=== PATIENT | female | born 1935 | race Hispanic/Latino ===

== ENCOUNTER → 2018-02-01 | Outpatient (CLI) | payer OTHER, MEDICARE | LOC: OIH 11:09 | PROVIDERS: ATTEND Family Medicine | DX: S20.212A Contusion of left front wall of thorax, initial encounter (principal); X58.XXXA Exposure to other specified factors, initial encounter; Y93.89 Activity, other specified; Y92.89 Other specified places as the place of occurrence of the external cause; Y99.8 Other external cause status | CPT/HCPCS: 71100 ==

== ENCOUNTER 2018-04-12 09:18 | Emergency (ER) | payer OTHER, MEDICARE ==
[2018-04-12 09:42] LABS: APPEARANCE,URINE Cloudy (CLEAR); BILIRUBIN,URINE Negative (NEGATIVE); COLOR,URINE Yellow (YELLOW); GLUCOSE, URINE (UA) Negative (NEGATIVE); KETONES,URINE Negative (NEGATIVE); LEUKOCYTE ESTERASE ,URINE Trace (NEGATIVE); NITRATE,URINE Positive (NEGATIVE); OCCULT BLOOD,URINE Negative (NEGATIVE); PH,URINE 5.5 (5.0-8.0); PROTEIN,URINE Negative (NEGATIVE)
[2018-04-12 09:55] LABS: EOSINOPHILS % (AUTO) 2.8 % (0.0-8.0); HEMATOCRIT 33.7 % (36-48); LYMPHOCYTES % (AUTO) 23.7 % (21.0-51.0); MEAN CORPUSCULAR HEMOGLOBIN 29.6 pg (27.0-33.0); MEAN CORPUSCULAR HGB CONC 33.6 g/dL (32.0-36.0); MEAN CORPUSCULAR VOLUME 88.1 fL (79-99); MONOCYTES % (AUTO) 5.4 % (3.0-13.0); NEUTROPHILS % (AUTO) 67.1 % (40.0-77.0); PLATELET COUNT (AUTO) 280 K/uL (130-400); RED BLOOD CELL COUNT(AUTO) 3.83 MIL/uL (4.00-5.50); RED CELL DISTRIBUTION WIDTH 13.5 % (11.0-15.5); WHITE BLOOD COUNT (AUTO) 6.5 K/uL (4.8-10.8)
[2018-04-12 10:09] LABS: CREATININE 0.7 mg/dL (0.5-1.5); POTASSIUM 4.5 mmol/L (3.5-5.1)
[2018-04-12 10:11] LABS: BACTERIA,URINE Many /HPF (None Seen); RBC,URINE 0-1 /HPF (0-1)
[2018-04-12 10:12] LABS: SQUAMOUS EPITHELIAL CELL,UR Rare /HPF (0-2)
[2018-04-12] MEDS ORDERED: HYDROCODONE/ACETAMINOPHEN 5/325 MG TAB ONE (10:26)
== END 2018-04-12 10:53 | disposition home or self-care (01) ==
LOC: EDH 09:18
DX: N39.0 Urinary tract infection, site not specified (principal); R30.0 Dysuria; I10 Essential (primary) hypertension; Z88.0 Allergy status to penicillin; Z90.710 Acquired absence of both cervix and uterus; Z98.890 Other specified postprocedural states
CPT/HCPCS: 36415; 80048; 81001; 85025; 87088; 87186

== ENCOUNTER 2018-04-20 00:03 | Emergency (ER) | payer OTHER, MEDICARE ==
[2018-04-20 00:36] LABS: APPEARANCE,URINE Clear (CLEAR); BILIRUBIN,URINE Negative (NEGATIVE); COLOR,URINE Yellow (YELLOW); GLUCOSE, URINE (UA) Negative (NEGATIVE); KETONES,URINE Negative (NEGATIVE); LEUKOCYTE ESTERASE ,URINE Negative (NEGATIVE); NITRATE,URINE Negative (NEGATIVE); OCCULT BLOOD,URINE Negative (NEGATIVE); PH,URINE 6.5 (5.0-8.0); PROTEIN,URINE Negative (NEGATIVE); UROBILINOGEN,URINE 0.2 mg/dL (0.2-1.0)
[2018-04-20 02:06] LABS: BASOPHILS % (AUTO) 0.6 % (0.0-5.0); EOSINOPHILS % (AUTO) 3.6 % (0.0-8.0); HEMATOCRIT 34.5 % (36-48); LYMPHOCYTES % (AUTO) 28.4 % (21.0-51.0); MEAN CORPUSCULAR HEMOGLOBIN 30.3 pg (27.0-33.0); MEAN CORPUSCULAR HGB CONC 34.3 g/dL (32.0-36.0); MEAN CORPUSCULAR VOLUME 88.4 fL (79-99); MONOCYTES % (AUTO) 5.7 % (3.0-13.0); NEUTROPHILS % (AUTO) 61.7 % (40.0-77.0); NUCLEATED RED BLOOD CELLS 0.1 % (0.0-0.19); PLATELET COUNT (AUTO) 256 K/uL (130-400); WHITE BLOOD COUNT (AUTO) 7.3 K/uL (4.8-10.8)
[2018-04-20 02:14] LABS: CREATININE 0.7 mg/dL (0.5-1.5); POTASSIUM 3.9 mmol/L (3.5-5.1)
[2018-04-20 02:29] LABS: ALBUMIN 3.8 g/dL (3.5-5.0); BILIRUBIN,TOTAL 0.2 mg/dL (0.2-1.0); TOTAL PROTEIN, SERUM 7.3 g/dL (6.0-8.3)
== END 2018-04-20 06:11 | disposition home or self-care (01) ==
LOC: EDH 00:03
DX: N76.0 Acute vaginitis (principal); R10.2 Pelvic and perineal pain; I10 Essential (primary) hypertension; Z88.0 Allergy status to penicillin
CPT/HCPCS: 36415; 74176; 80053; 81003; 85025

== ENCOUNTER 2018-09-10 08:11 | Emergency (ER) | payer OTHER, MEDICARE ==
[2018-09-10] MEDS ORDERED: MECLIZINE HCL 25 MG TABLET ONE (08:50)
[2018-09-10] MEDS ORDERED: SODIUM CHLORIDE 0.9% 500ML 500 ML IV ONE (08:50)
[2018-09-10 09:09] LABS: BASOPHILS % (AUTO) 0.5 % (0.0-5.0); EOSINOPHILS % (AUTO) 0.6 % (0.0-8.0); HEMATOCRIT 35.2 % (36-48); LYMPHOCYTES % (AUTO) 21.4 % (21.0-51.0); MEAN CORPUSCULAR HEMOGLOBIN 29.4 pg (27.0-33.0); MEAN CORPUSCULAR HGB CONC 33.2 g/dL (32.0-36.0); MEAN CORPUSCULAR VOLUME 88.6 fL (79-99); MONOCYTES % (AUTO) 4.3 % (3.0-13.0); NEUTROPHILS % (AUTO) 73.2 % (40.0-77.0); PLATELET COUNT (AUTO) 261 K/uL (130-400); RED BLOOD CELL COUNT(AUTO) 3.97 MIL/uL (4.00-5.50); RED CELL DISTRIBUTION WIDTH 13.3 % (11.0-15.5); WHITE BLOOD COUNT (AUTO) 5.9 K/uL (4.8-10.8)
[2018-09-10 09:15] LABS: CREATININE 0.8 mg/dL (0.5-1.5)
== END 2018-09-10 10:46 | disposition home or self-care (01) ==
LOC: EDH 08:11
DX: R55 Syncope and collapse (principal); E86.9 Volume depletion, unspecified; R00.1 Bradycardia, unspecified; I10 Essential (primary) hypertension; Z88.0 Allergy status to penicillin
CPT/HCPCS: 36415; 70450; 80048; 84484; 85025; 93005; 96360; 99285; J7040

== ENCOUNTER 2018-09-26 14:28 | Emergency (ER) | payer OTHER, MEDICARE ==
[2018-09-26 16:10] LABS: BASOPHILS % (AUTO) 0.5 % (0.0-5.0); EOSINOPHILS % (AUTO) 0.6 % (0.0-8.0); HEMATOCRIT 32.1 % (36-48); LYMPHOCYTES % (AUTO) 31.2 % (21.0-51.0); MEAN CORPUSCULAR HEMOGLOBIN 29.3 pg (27.0-33.0); MEAN CORPUSCULAR HGB CONC 33.1 g/dL (32.0-36.0); MEAN CORPUSCULAR VOLUME 88.7 fL (79-99); MONOCYTES % (AUTO) 5.6 % (3.0-13.0); NEUTROPHILS % (AUTO) 62.1 % (40.0-77.0); PLATELET COUNT (AUTO) 257 K/uL (130-400); RED BLOOD CELL COUNT(AUTO) 3.62 MIL/uL (4.00-5.50); RED CELL DISTRIBUTION WIDTH 13.3 % (11.0-15.5)
[2018-09-26 17:28] LABS: POTASSIUM 4.3 mmol/L (3.5-5.1)
[2018-09-26 17:29] LABS: ALBUMIN 3.5 g/dL (3.5-5.0); BILIRUBIN,TOTAL 0.2 mg/dL (0.2-1.0); CREATININE 0.8 mg/dL (0.5-1.5); TOTAL PROTEIN, SERUM 6.8 g/dL (6.0-8.3)
== END 2018-09-26 17:56 | disposition home or self-care (01) ==
LOC: EDH 14:28
DX: R20.2 Paresthesia of skin (principal); R51 Headache; R42 Dizziness and giddiness; I10 Essential (primary) hypertension; Z90.710 Acquired absence of both cervix and uterus; Z98.890 Other specified postprocedural states; Z88.0 Allergy status to penicillin
CPT/HCPCS: 36415; 80053; 85025

== ENCOUNTER 2018-12-03 05:44 | Emergency (ER) | payer OTHER, MEDICARE ==
[2018-12-03 06:20] LABS: BASOPHILS % (AUTO) 0.4 % (0.0-5.0); EOSINOPHILS % (AUTO) 0.5 % (0.0-8.0); HEMATOCRIT 34.5 % (36-48); LYMPHOCYTES % (AUTO) 24.1 % (21.0-51.0); MEAN CORPUSCULAR HEMOGLOBIN 29.1 pg (27.0-33.0); MEAN CORPUSCULAR HGB CONC 32.8 g/dL (32.0-36.0); MONOCYTES % (AUTO) 4.9 % (3.0-13.0); NEUTROPHILS % (AUTO) 70.1 % (40.0-77.0); NUCLEATED RED BLOOD CELLS 0.1 % (0.0-0.19); PLATELET COUNT (AUTO) 267 K/uL (130-400); RED BLOOD CELL COUNT(AUTO) 3.88 MIL/uL (4.00-5.50); RED CELL DISTRIBUTION WIDTH 13.4 % (11.0-15.5); WHITE BLOOD COUNT (AUTO) 5.3 K/uL (4.8-10.8)
[2018-12-03 06:26] LABS: CREATININE 0.8 mg/dL (0.5-1.5)
[2018-12-03 06:33] LABS: INR 0.93 (0.85-1.15); PARTIAL THROMBOPLASTIN TIME 25.7 SEC (26.3-35.5); PROTHROMBIN TIME 9.8 SEC (9.6-11.6)
[2018-12-03 06:35] LABS: ALBUMIN 3.8 g/dL (3.5-5.0); BILIRUBIN,TOTAL 0.2 mg/dL (0.2-1.0); TOTAL PROTEIN, SERUM 7.5 g/dL (6.0-8.3)
[2018-12-03] MEDS ORDERED: ACETAMINOPHEN EXTRA STRENGTH 500 MG TABLET ONE (06:44)
[2018-12-03 07:13] LABS: APPEARANCE,URINE Clear (CLEAR); BILIRUBIN,URINE Negative (NEGATIVE); COLOR,URINE Yellow (YELLOW); GLUCOSE, URINE (UA) Negative (NEGATIVE); KETONES,URINE Negative (NEGATIVE); LEUKOCYTE ESTERASE ,URINE Negative (NEGATIVE); NITRATE,URINE Negative (NEGATIVE); OCCULT BLOOD,URINE Negative (NEGATIVE); PROTEIN,URINE Negative (NEGATIVE); UROBILINOGEN,URINE 0.2 mg/dL (0.2-1.0)
== END 2018-12-03 07:59 | disposition home or self-care (01) ==
LOC: EDH 05:44
DX: M54.6 Pain in thoracic spine (principal); R20.2 Paresthesia of skin; R51 Headache; I10 Essential (primary) hypertension; R79.1 Abnormal coagulation profile; Z88.0 Allergy status to penicillin; Z90.710 Acquired absence of both cervix and uterus
CPT/HCPCS: 36415; 71045; 80053; 81003; 84484; 85025; 85610; 85730; 93005

== ENCOUNTER 2019-02-17 12:47 | Emergency (ER) | payer OTHER, MEDICARE ==
[2019-02-17] MEDS ORDERED: MECLIZINE HCL 25 MG TABLET ONE (13:21)
[2019-02-17 13:38] LABS: APPEARANCE,URINE Clear (CLEAR); BILIRUBIN,URINE Negative (NEGATIVE); COLOR,URINE Yellow (YELLOW); GLUCOSE, URINE (UA) Negative (NEGATIVE); KETONES,URINE Negative (NEGATIVE); LEUKOCYTE ESTERASE ,URINE Negative (NEGATIVE); NITRATE,URINE Negative (NEGATIVE); OCCULT BLOOD,URINE Negative (NEGATIVE); PROTEIN,URINE Negative (NEGATIVE)
== END 2019-02-17 16:31 | disposition home or self-care (01) ==
LOC: EDH 12:47
DX: R42 Dizziness and giddiness (principal); R53.1 Weakness; I10 Essential (primary) hypertension; Z88.0 Allergy status to penicillin; Z90.710 Acquired absence of both cervix and uterus; Z98.890 Other specified postprocedural states
CPT/HCPCS: 70450; 81003; 93005

== ENCOUNTER 2019-02-28 08:30 | Emergency (ER) | payer OTHER, MEDICARE ==
[2019-02-28] MEDS ORDERED: ACETAMINOPHEN 325 MG TAB ONE (09:00)
[2019-02-28 09:11] LABS: CREATININE 0.7 mg/dL (0.5-1.5); POTASSIUM 4.1 mmol/L (3.5-5.1)
[2019-02-28 09:12] LABS: BASOPHILS % (AUTO) 0.3 % (0.0-5.0); EOSINOPHILS % (AUTO) 0.3 % (0.0-8.0); HEMATOCRIT 33.5 % (36-48); LYMPHOCYTES % (AUTO) 23.3 % (21.0-51.0); MEAN CORPUSCULAR HEMOGLOBIN 29.8 pg (27.0-33.0); MEAN CORPUSCULAR HGB CONC 33.9 g/dL (32.0-36.0); MONOCYTES % (AUTO) 4.9 % (3.0-13.0); NEUTROPHILS % (AUTO) 71.2 % (40.0-77.0); PLATELET COUNT (AUTO) 265 K/uL (130-400); RED CELL DISTRIBUTION WIDTH 13.9 % (11.0-15.5); WHITE BLOOD COUNT (AUTO) 4.6 K/uL (4.8-10.8)
[2019-02-28 09:15] LABS: ALBUMIN 3.6 g/dL (3.5-5.0); BILIRUBIN,TOTAL 0.4 mg/dL (0.2-1.0)
== END 2019-02-28 09:18 | disposition home or self-care (01) ==
LOC: EDH 08:30
DX: I10 Essential (primary) hypertension (principal); Z88.0 Allergy status to penicillin
CPT/HCPCS: 36415; 80053; 84484; 85025; 93005

== ENCOUNTER 2019-03-19 08:18 | Emergency (ER) | payer OTHER, MEDICARE ==
[2019-03-19] MEDS ORDERED: IBUPROFEN 400 MG TABLET ONE (09:33)
[2019-03-19 09:54] LABS: BASOPHILS % (AUTO) 0.7 % (0.0-5.0); EOSINOPHILS % (AUTO) 0.6 % (0.0-8.0); HEMATOCRIT 35.4 % (36-48); LYMPHOCYTES % (AUTO) 23.8 % (21.0-51.0); MEAN CORPUSCULAR HEMOGLOBIN 29.8 pg (27.0-33.0); MEAN CORPUSCULAR HGB CONC 33.2 g/dL (32.0-36.0); MEAN CORPUSCULAR VOLUME 89.7 fL (79-99); MONOCYTES % (AUTO) 4.9 % (3.0-13.0); PLATELET COUNT (AUTO) 283 K/uL (130-400); RED BLOOD CELL COUNT(AUTO) 3.94 MIL/uL (4.00-5.50)
[2019-03-19 10:02] LABS: CREATININE 0.7 mg/dL (0.5-1.5); POTASSIUM 4.7 mmol/L (3.5-5.1)
== END 2019-03-19 11:32 | disposition home or self-care (01) ==
LOC: EDH 08:18
DX: R51 Headache (principal); I10 Essential (primary) hypertension; Z88.0 Allergy status to penicillin; Z90.710 Acquired absence of both cervix and uterus
CPT/HCPCS: 36415; 80048; 84484; 85025; 93005

== ENCOUNTER 2019-05-26 18:24 | Emergency (ER) | payer OTHER, MEDICARE ==
[2019-05-26 19:31] LABS: BASOPHILS % (AUTO) 0.9 % (0.0-5.0); EOSINOPHILS % (AUTO) 3.9 % (0.0-8.0); LYMPHOCYTES % (AUTO) 31.9 % (21.0-51.0); MEAN CORPUSCULAR HEMOGLOBIN 29.5 pg (27.0-33.0); MEAN CORPUSCULAR HGB CONC 32.8 g/dL (32.0-36.0); MEAN CORPUSCULAR VOLUME 90.2 fL (79-99); MONOCYTES % (AUTO) 6.5 % (3.0-13.0); NEUTROPHILS % (AUTO) 56.8 % (40.0-77.0); PLATELET COUNT (AUTO) 256 K/uL (130-400); RED BLOOD CELL COUNT(AUTO) 3.65 MIL/uL (4.00-5.50); RED CELL DISTRIBUTION WIDTH 13.6 % (11.0-15.5); WHITE BLOOD COUNT (AUTO) 6.2 K/uL (4.8-10.8)
[2019-05-26 19:42] LABS: CREATININE 0.8 mg/dL (0.5-1.5); POTASSIUM 4.3 mmol/L (3.5-5.1)
[2019-05-26 19:42] LABS: APPEARANCE,URINE Clear (CLEAR); BILIRUBIN,URINE Negative (NEGATIVE); COLOR,URINE Yellow (YELLOW); GLUCOSE, URINE (UA) Negative (NEGATIVE); KETONES,URINE Negative (NEGATIVE); LEUKOCYTE ESTERASE ,URINE Trace (NEGATIVE); NITRATE,URINE Negative (NEGATIVE); OCCULT BLOOD,URINE Negative (NEGATIVE); PROTEIN,URINE Negative (NEGATIVE)
[2019-05-26 19:46] LABS: ALBUMIN 3.5 g/dL (3.5-5.0); BILIRUBIN,TOTAL 0.1 mg/dL (0.2-1.0); TOTAL PROTEIN, SERUM 6.9 g/dL (6.0-8.3)
[2019-05-26] MEDS ORDERED: KETOROLAC TROMETHAMINE 15MG/ML ONE (19:57)
[2019-05-26 19:59] LABS: BACTERIA,URINE Few /HPF (None Seen); RBC,URINE None Seen /HPF (0-1); WBC,URINE 0-1 /HPF (0-1)
== END 2019-05-26 23:00 | disposition home or self-care (01) ==
LOC: EDH 18:24
DX: G44.209 Tension-type headache, unspecified, not intractable (principal); M25.572 Pain in left ankle and joints of left foot; I10 Essential (primary) hypertension; Z88.0 Allergy status to penicillin
CPT/HCPCS: 36415; 80053; 81001; 85025; 96374; 99284; J1885

== ENCOUNTER 2019-08-13 09:24 | Emergency (ER) | payer OTHER, MEDICARE ==
[2019-08-13] MEDS ORDERED: KETOROLAC TROMETHAMINE 15MG/ML ONE (10:19)
[2019-08-13] MEDS ORDERED: PROCHLORPERAZINE EDISYLATE 10 MG/2 ML VIAL ONE (10:20)
== END 2019-08-13 11:28 | disposition home or self-care (01) ==
LOC: EDH 09:24
DX: R51 Headache (principal); I10 Essential (primary) hypertension; Z88.0 Allergy status to penicillin
CPT/HCPCS: 70450; 96374; 96375; 99284; J0780; J1885

== ENCOUNTER 2019-09-26 02:48 | Emergency (ER) | payer OTHER, MEDICARE ==
[2019-09-26] MEDS ORDERED: KETOROLAC TROMETHAMINE 30MG/ML ONE (03:04)
== END 2019-09-26 04:08 | disposition home or self-care (01) ==
LOC: EDH 02:48
DX: R51 Headache (principal); R20.2 Paresthesia of skin; I10 Essential (primary) hypertension; Z88.0 Allergy status to penicillin
CPT/HCPCS: 96372; 99283; J1885

== ENCOUNTER 2019-11-22 13:05 | Emergency (ER) | payer OTHER, MEDICARE ==
[2019-11-22 13:39] LABS: BASOPHILS % (AUTO) 0.4 % (0.0-5.0); EOSINOPHILS % (AUTO) 0.7 % (0.0-8.0); HEMATOCRIT 33.3 % (36-48); LYMPHOCYTES % (AUTO) 23.6 % (21.0-51.0); MEAN CORPUSCULAR HEMOGLOBIN 28.5 pg (27.0-33.0); MEAN CORPUSCULAR HGB CONC 31.5 g/dL (32.0-36.0); MEAN CORPUSCULAR VOLUME 90.2 fL (79-99); PLATELET COUNT (AUTO) 247 K/uL (130-400); RED BLOOD CELL COUNT(AUTO) 3.69 MIL/uL (4.00-5.50); RED CELL DISTRIBUTION WIDTH 12.4 % (11.0-15.5); WHITE BLOOD COUNT (AUTO) 6.9 K/uL (4.8-10.8)
[2019-11-22 13:51] LABS: CREATININE 0.8 mg/dL (0.5-1.5); POTASSIUM 4.5 mmol/L (3.5-5.1)
[2019-11-22 13:52] LABS: INR 0.98 (0.85-1.15); PARTIAL THROMBOPLASTIN TIME 25.2 SEC (26.3-35.5); PROTHROMBIN TIME 10.3 SEC (9.6-11.6)
[2019-11-22 13:54] LABS: ALBUMIN 3.5 g/dL (3.5-5.0); BILIRUBIN,TOTAL 0.3 mg/dL (0.2-1.0)
[2019-11-22] MEDS ORDERED: ONDANSETRON HCL 4 MG/2 ML VIAL ONE (14:56)
[2019-11-22] MEDS ORDERED: LIDOCAINE 1%-EPI 1:100,000 20 ML VIAL IJ ONE (14:56)
[2019-11-22] MEDS ORDERED: MORPHINE SULFATE 4 MG/1ML SYG ONE (14:57)
[2019-11-22] MEDS ORDERED: CLINDAMYCIN 600 MG/D5% WATER 50 ML IV ONE (14:57)
[2019-11-22] MEDS ORDERED: TETANUS/DIPHTHERIA TOXOID [ADULT] 0.5 ML VIAL IM ONE (17:43)
[2019-11-22] MEDS ORDERED: HYDROCODONE/ACETAMINOPHEN 5/325 MG TAB ONE (17:55)
[2019-11-27] MEDS ORDERED: FOLI0.8T PO (23:37)
[2019-11-27] MEDS ORDERED: LOSA100T58 PO (23:37)
[2019-11-27] MEDS ORDERED: AEC81 PO (23:37)
[2019-11-27] MEDS ORDERED: PANT40TA25 PO (23:37)
[2019-11-27] MEDS ORDERED: NEBI10TA PO (23:37)
[2019-11-27] MEDS ORDERED: OXYB-66 PO (23:37)
== END 2019-11-22 18:15 | disposition home or self-care (01) ==
LOC: EDH 13:05
DX: S01.81XA Laceration without foreign body of other part of head, initial encounter (principal); W18.39XA Other fall on same level, initial encounter; Y93.89 Activity, other specified; Y92.89 Other specified places as the place of occurrence of the external cause; Y99.8 Other external cause status; S80.01XA Contusion of right knee, initial encounter; S62.102A Fracture of unspecified carpal bone, left wrist, initial encounter for closed fracture; S62.101A Fracture of unspecified carpal bone, right wrist, initial encounter for closed fracture
CPT/HCPCS: 12054; 36415; 70450; 70486; 71045; 72125; 72170; 73110 ×2; 73562; 80053; 82550; 84484; 85025; 85610; 85730; 90471; 90714; 93005; 96365; 96375; 99285; J2270; J2405; J3490 ×2

== ENCOUNTER 2021-10-17 12:01 | Inpatient (IN) | payer OTHER, MEDICARE ==
[~2021-10-17] VITALS: Ht 152.4 cm; Wt 60.0 kg
[~2021-10-17 12:01] MED LIST: AEC81 PO; BISA5TAB12 PO; FOLI0.8T3 PO; LOSA100T58 PO; NEBI10TA PO; OXYB-66 PO; PANT40TA54 PO
[2021-10-17] MEDS ORDERED: 0.9%NACL 1000ML 1,000 ML IV SCH (12:30)
[2021-10-17 12:32] LABS: BASOPHILS % (AUTO) 0.5 % (0.0-5.0); EOSINOPHILS % (AUTO) 0.9 % (0.0-8.0); HEMATOCRIT 36.5 % (36-48); LYMPHOCYTES % (AUTO) 27.3 % (21.0-51.0); MEAN CORPUSCULAR HEMOGLOBIN 28.8 pg (27.0-33.0); MEAN CORPUSCULAR HGB CONC 29.9 g/dL (32.0-36.0); MEAN CORPUSCULAR VOLUME 96.3 fL (79-99); MONOCYTES % (AUTO) 4.7 % (3.0-13.0); NEUTROPHILS % (AUTO) 65.9 % (40.0-77.0); PLATELET COUNT (AUTO) 281 K/uL (130-400); RED BLOOD CELL COUNT(AUTO) 3.79 MIL/uL (4.00-5.50); RED CELL DISTRIBUTION WIDTH 13.9 % (11.0-15.5); WHITE BLOOD COUNT (AUTO) 8.9 K/uL (4.8-10.8)
[2021-10-17 12:42] LABS: APPEARANCE,URINE CLOUDY (CLEAR); BILIRUBIN,URINE NEGATIVE (NEGATIVE); COLOR,URINE RED (YELLOW); GLUCOSE, URINE (UA) NEGATIVE (NEGATIVE); KETONES,URINE NEGATIVE (NEGATIVE); LEUKOCYTE ESTERASE ,URINE TRACE (NEGATIVE); NITRATE,URINE POSITIVE (NEGATIVE); OCCULT BLOOD,URINE NEGATIVE (NEGATIVE); PH,URINE 8.5 (5.0-8.0); PROTEIN,URINE TRACE mg/dL (NEGATIVE)
[2021-10-17 12:52] LABS: CREATININE 2.8 mg/dL (0.5-1.5); POTASSIUM 4.3 mmol/L (3.5-5.1)
[2021-10-17 12:56] LABS: ALBUMIN 3.2 g/dL (3.5-5.0); BILIRUBIN,TOTAL 0.3 mg/dL (0.2-1.0); CRP QUANTITATIVE 4.2 mg/L (0.00-9.0); TOTAL PROTEIN, SERUM 6.9 g/dL (6.0-8.3)
[2021-10-17 12:58] LABS: BACTERIA,URINE Many /HPF (None Seen); RBC,URINE 0-1 /HPF (0-1); WBC,URINE 0-1 /HPF (0-1)
[2021-10-17 12:59] LABS: SQUAMOUS EPITHELIAL CELL,UR Rare /HPF (0-2); TRIPLE PHOSPHATE CRYSTAL,UR Few /LPF (None Seen)
[2021-10-17] MEDS ORDERED: CEFTRIAXONE 1G VIAL IVP ONE (13:00)
[2021-10-17 13:24] LABS: B-TYPE NATRIURETIC PEPTIDE 23 pg/mL (0-100)
[2021-10-17] MEDS ORDERED: HYDR50TA PO (14:59)
[2021-10-17] MEDS ORDERED: VALS320T16 PO (14:59)
[2021-10-17] MEDS ORDERED: DEXA1TAB PO (14:59)
[2021-10-17] MEDS ORDERED: CARV3.12 PO (14:59)
[2021-10-17] MEDS ORDERED: HYDR-4060 PO (14:59)
[2021-10-17] MEDS ORDERED: DRISDOL PO (14:59)
[2021-10-17] MEDS ORDERED: QUET100T34 PO (14:59)
[2021-10-17] MEDS ORDERED: MEMA5TAB42 PO (14:59)
[2021-10-17] MEDS ORDERED: TRAZ-185 PO (14:59)
[2021-10-17 15:04] LABS: ABG BASE EXCESS -8.8 mmol/L (-2.0-3.0); ABG HCO3 16.3 mmol/L (21.0-28.0); ABG OXYGEN SATURATION 94.8 % (95.0-99.0); ABG PCO2 33 mmHg (32-45)
[2021-10-17] MEDS ORDERED: ACETAMINOPHEN 650 MG SUPPOSITORY RC PRN (15:30)
[2021-10-17] MEDS ORDERED: ACETAMINOPHEN 325 MG TAB PO PRN (15:30)
[2021-10-17] MEDS ORDERED: ONDANSETRON 4MG INJ IVP PRN (15:30)
[2021-10-17] MEDS ORDERED: CEFTRIAXONE 1G VIAL IVP SCH (15:30)
[2021-10-17] MEDS: LACTATED RINGERS 1000ML 1,000 ML IV SCH ×2 (15:37→23:43)
[2021-10-17] MEDS ORDERED: SODIUM BICARB 50MEQ 50ML VIAL IV STA (15:48)
[2021-10-17] MEDS ORDERED: MIDODRINE HCL 5 MG TABLET PO SCH (16:00)
[2021-10-17] MEDS ORDERED: LEVOFLOXACIN 500 MG/D5W 100 ML 100 ML IV SCH (16:00)
[2021-10-17] MEDS ORDERED: LACTULOSE 20 GM/30 ML UDCUP PO PRN (21:00)
[2021-10-17] MEDS ORDERED: LACTULOSE 20 GM/30 ML UDCUP PO ONE (21:00)
[2021-10-17] MEDS: MIDODRINE HCL 5 MG TABLET PO SCH (21:47)
[2021-10-17] MEDS ORDERED: METRONIDAZOLE 500MG/100ML BAG 100 ML IVPB SCH (22:00)
[2021-10-17] MEDS: METRONIDAZOLE 500 MG TABLET PO SCH (22:59)
[2021-10-18 04:12] LABS: BASOPHILS % (AUTO) 0.3 % (0.0-5.0); LYMPHOCYTES % (AUTO) 25.5 % (21.0-51.0); MEAN CORPUSCULAR HEMOGLOBIN 29.5 pg (27.0-33.0); MEAN CORPUSCULAR HGB CONC 30.3 g/dL (32.0-36.0); MEAN CORPUSCULAR VOLUME 97.3 fL (79-99); MONOCYTES % (AUTO) 6.1 % (3.0-13.0); NEUTROPHILS % (AUTO) 66.1 % (40.0-77.0); PLATELET COUNT (AUTO) 195 K/uL (130-400); RED BLOOD CELL COUNT(AUTO) 2.98 MIL/uL (4.00-5.50); RED CELL DISTRIBUTION WIDTH 13.8 % (11.0-15.5); WHITE BLOOD COUNT (AUTO) 5.9 K/uL (4.8-10.8)
[2021-10-18 04:36] LABS: CARBON DIOXIDE 25 mmol/L (21-32); CHLORIDE 110 mmol/L (101-111); CREATININE 1.5 mg/dL (0.5-1.5); GLOMERULAR FILTR. RATE CALC 35 mL/min (>60); GLUCOSE,RANDOM 88 mg/dL (70-105); PHOSPHORUS 3.1 mg/dL (2.5-4.9); SODIUM SERUM 144 mmol/L (136-145); THYROID STIMULATING HORMONE 0.84 uIU/mL (0.36-3.74); UREA NITROGEN, BLOOD 28 mg/dL (7-18)
[2021-10-18 04:38] LABS: LIPASE < 50 U/L (114-286)
[2021-10-18] MEDS: METRONIDAZOLE 500 MG TABLET PO SCH ×3 (06:41→22:06)
[2021-10-18] MEDS: LACTATED RINGERS 1000ML 1,000 ML IV SCH ×3 (08:14→23:30)
[2021-10-18] MEDS: MIDODRINE HCL 5 MG TABLET PO SCH ×3 (08:14→15:12)
[2021-10-18] MEDS: PANTOPRAZOLE 40 MG TAB DR PO SCH (08:14)
[2021-10-18] MEDS: ENOXAPARIN SODIUM 30 MG/0.3 ML SQ SCH (08:15)
[2021-10-18 09:00] VITALS: BP 102/45
[2021-10-18 11:00] VITALS: BP 123/63
[2021-10-18 16:00] VITALS: BP 148/86
[2021-10-18] MEDS ORDERED: ASPIRIN 325MG TAB ONE (18:28)
[2021-10-18] MEDS ORDERED: NITROGLYCERIN 0.4 MG SL TAB SL ONE (18:28)
[2021-10-18] MEDS ORDERED: NITROGLYCERIN 0.4 MG SL TAB SL PRN (18:30)
[2021-10-18 18:37] VITALS: BP 138/75
[2021-10-18] MEDS ORDERED: HYDROCODONE/ACETAMINOPHEN 5/325 MG TAB PO PRN (19:00)
[2021-10-18] MEDS ORDERED: TRAZODONE HCL 50 MG TAB PO PRN (19:00)
[2021-10-18] MEDS ORDERED: BISACODYL 5 MG TABLET.DR PO PRN (19:00)
[2021-10-18] MEDS ORDERED: ASPIRIN 325MG EC TAB PO ONE (19:30)
[2021-10-18 21:33] VITALS: BP 125/74
[2021-10-18] MEDS: CARVEDILOL 3.125 MG TABLET PO SCH (22:08)
[2021-10-18 23:56] VITALS: BP 125/74
[2021-10-19 03:58] LABS: HEMATOCRIT 26.9 % (36-48); MEAN CORPUSCULAR HEMOGLOBIN 29.2 pg (27.0-33.0); MEAN CORPUSCULAR HGB CONC 31.2 g/dL (32.0-36.0); MEAN CORPUSCULAR VOLUME 93.4 fL (79-99); RED BLOOD CELL COUNT(AUTO) 2.88 MIL/uL (4.00-5.50); RED CELL DISTRIBUTION WIDTH 13.5 % (11.0-15.5); WHITE BLOOD COUNT (AUTO) 5.6 K/uL (4.8-10.8)
[2021-10-19 04:09] VITALS: BP 115/66
[2021-10-19 04:10] LABS: CREATININE 1.1 mg/dL (0.5-1.5); POTASSIUM 3.8 mmol/L (3.5-5.1)
[2021-10-19] MEDS: METRONIDAZOLE 500 MG TABLET PO SCH ×3 (06:00→20:42)
[2021-10-19 07:30] VITALS: BP 118/62
[2021-10-19] MEDS: LACTATED RINGERS 1000ML 1,000 ML IV SCH ×3 (07:30→20:42)
[2021-10-19] MEDS: FOLIC ACID 1 MG TABLET PO SCH (09:42)
[2021-10-19] MEDS: ASPIRIN 81 MG EC TAB PO SCH (09:42)
[2021-10-19] MEDS: ENOXAPARIN SODIUM 30 MG/0.3 ML SQ SCH (09:43)
[2021-10-19] MEDS: CARVEDILOL 3.125 MG TABLET PO SCH ×2 (09:43→20:42)
[2021-10-19] MEDS: OXYBUTYNIN 5 MG TAB.SR.24H PO SCH (09:43)
[2021-10-19] MEDS: PANTOPRAZOLE 40 MG TAB DR PO SCH (09:43)
[2021-10-19] MEDS: MEMANTINE HCL 5 MG TABLET PO SCH (09:43)
[2021-10-19 11:00] VITALS: BP 128/50
[2021-10-19 16:00] VITALS: BP 133/76
[2021-10-19] MEDS ORDERED: LEVOFLOXACIN 250 MG/D5W 50ML 50 ML IVPB SCH (16:00)
[2021-10-19 20:00] VITALS: BP 127/55
[2021-10-19] MEDS: TEMAZEPAM 15 MG CAPSULE PO PRN (20:42)
[2021-10-20] VITALS: BP 130/58
[2021-10-20 04:00] VITALS: BP 135/70
[2021-10-20 04:20] LABS: BASOPHILS % (AUTO) 0.4 % (0.0-5.0); EOSINOPHILS % (AUTO) 1.5 % (0.0-8.0); HEMATOCRIT 26.9 % (36-48); LYMPHOCYTES % (AUTO) 31.1 % (21.0-51.0); MEAN CORPUSCULAR HEMOGLOBIN 29.3 pg (27.0-33.0); MEAN CORPUSCULAR HGB CONC 30.5 g/dL (32.0-36.0); MEAN CORPUSCULAR VOLUME 96.1 fL (79-99); MONOCYTES % (AUTO) 6.6 % (3.0-13.0); NEUTROPHILS % (AUTO) 59.8 % (40.0-77.0); PLATELET COUNT (AUTO) 151 K/uL (130-400); RED CELL DISTRIBUTION WIDTH 13.5 % (11.0-15.5); WHITE BLOOD COUNT (AUTO) 4.7 K/uL (4.8-10.8)
[2021-10-20 04:35] LABS: ALBUMIN 2.1 g/dL (3.5-5.0); BILIRUBIN,TOTAL 0.3 mg/dL (0.2-1.0); MAGNESIUM 1.5 mg/dL (1.80-2.40); POTASSIUM 4.1 mmol/L (3.5-5.1); TOTAL PROTEIN, SERUM 4.7 g/dL (6.0-8.3)
[2021-10-20] MEDS: METRONIDAZOLE 500 MG TABLET PO SCH ×3 (05:52→19:38)
[2021-10-20] MEDS: LACTATED RINGERS 1000ML 1,000 ML IV SCH (05:59)
[2021-10-20 07:30] VITALS: BP 135/71
[2021-10-20] MEDS ORDERED: MAGNESIUM 2GM PREMIX 50ML 50 ML IV PRN (08:30)
[2021-10-20 08:39] LABS: RETICULOCYTE % (AUTO) 2.1 % (0.42-2.23)
[2021-10-20] MEDS: PANTOPRAZOLE 40 MG TAB DR PO SCH (09:20)
[2021-10-20] MEDS: FOLIC ACID 1 MG TABLET PO SCH (09:20)
[2021-10-20] MEDS: MEMANTINE HCL 5 MG TABLET PO SCH (09:20)
[2021-10-20] MEDS: CARVEDILOL 3.125 MG TABLET PO SCH ×2 (09:21→19:38)
[2021-10-20] MEDS: OXYBUTYNIN 5 MG TAB.SR.24H PO SCH (09:21)
[2021-10-20] MEDS: ENOXAPARIN SODIUM 30 MG/0.3 ML SQ SCH (09:23)
[2021-10-20] MEDS: ASPIRIN 81 MG EC TAB PO SCH (09:29)
[2021-10-20 11:00] VITALS: BP 116/58
[2021-10-20 16:00] VITALS: BP 121/61
[2021-10-20] MEDS: FERROUS SULFATE 325 MG TABLET.DR PO SCH (19:38)
[2021-10-20 20:00] VITALS: BP 134/85
[2021-10-20] MEDS: TEMAZEPAM 15 MG CAPSULE PO PRN (21:44)
[2021-10-21] VITALS: BP 127/53
[2021-10-21 04:00] VITALS: BP 146/67
[2021-10-21] MEDS: METRONIDAZOLE 500 MG TABLET PO SCH ×2 (05:27→14:57)
[2021-10-21 05:48] LABS: HEMATOCRIT 26.6 % (36-48); MEAN CORPUSCULAR HEMOGLOBIN 29.3 pg (27.0-33.0); MEAN CORPUSCULAR HGB CONC 31.6 g/dL (32.0-36.0); MEAN CORPUSCULAR VOLUME 92.7 fL (79-99); RED BLOOD CELL COUNT(AUTO) 2.87 MIL/uL (4.00-5.50); RED CELL DISTRIBUTION WIDTH 13.3 % (11.0-15.5); WHITE BLOOD COUNT (AUTO) 4.2 K/uL (4.8-10.8)
[2021-10-21 06:13] LABS: ALBUMIN 2.2 g/dL (3.5-5.0); BILIRUBIN,TOTAL 0.4 mg/dL (0.2-1.0); MAGNESIUM 1.3 mg/dL (1.80-2.40); POTASSIUM 3.9 mmol/L (3.5-5.1); TOTAL PROTEIN, SERUM 5.1 g/dL (6.0-8.3)
[2021-10-21 07:30] VITALS: BP 139/78
[2021-10-21] MEDS: ASPIRIN 81 MG EC TAB PO SCH (08:42)
[2021-10-21] MEDS: OXYBUTYNIN 5 MG TAB.SR.24H PO SCH (08:42)
[2021-10-21] MEDS: PANTOPRAZOLE 40 MG TAB DR PO SCH (08:42)
[2021-10-21] MEDS: MEMANTINE HCL 5 MG TABLET PO SCH (08:42)
[2021-10-21] MEDS: CARVEDILOL 3.125 MG TABLET PO SCH (08:42)
[2021-10-21] MEDS: FERROUS SULFATE 325 MG TABLET.DR PO SCH (08:42)
[2021-10-21] MEDS: FOLIC ACID 1 MG TABLET PO SCH (08:42)
[2021-10-21] MEDS: ENOXAPARIN SODIUM 30 MG/0.3 ML SQ SCH (08:43)
[2021-10-21] MEDS ORDERED: MAGNESIUM OXIDE 400 MG TABLET PO SCH (09:00)
[2021-10-21 11:00] VITALS: BP 112/64
[2021-10-21] MEDS ORDERED: FERR324T4 PO (13:26)
[2021-10-21 16:00] VITALS: BP 145/79
[2021-10-22] MEDS ORDERED: MAGN400T53 PO (06:21)
== END 2021-10-21 17:00 | disposition home or self-care (01) | DRG 641 ==
LOC: EDH 12:01 → OBSVTOIN 15:06 → EDHIP 15:06 → 4BH 10-18 08:57
PROVIDERS: ADMIT Internal Medicine; ATTEND Internal Medicine
DX: E86.0 Dehydration (principal); N17.9 Acute kidney failure, unspecified; I12.9 Hypertensive chronic kidney disease with stage 1 through stage 4 chronic kidney disease, or unspecified chronic kidney disease; D64.9 Anemia, unspecified; N18.9 Chronic kidney disease, unspecified; Z20.822 Contact with and (suspected) exposure to COVID-19; K21.9 Gastro-esophageal reflux disease without esophagitis; F03.90 Unspecified dementia, unspecified severity, without behavioral disturbance, psychotic disturbance, mood disturbance, and anxiety; M19.90 Unspecified osteoarthritis, unspecified site; Z96.653 Presence of artificial knee joint, bilateral; E11.22 Type 2 diabetes mellitus with diabetic chronic kidney disease; E78.5 Hyperlipidemia, unspecified; Z66 Do not resuscitate; E78.00 Pure hypercholesterolemia, unspecified; K59.00 Constipation, unspecified; Z88.0 Allergy status to penicillin; Z98.49 Cataract extraction status, unspecified eye; Z90.710 Acquired absence of both cervix and uterus; Z79.82 Long term (current) use of aspirin; Z79.899 Other long term (current) drug therapy
CPT/HCPCS: 36415; 36600; 70450; 71045; 74176; 80048; 80053; 81001; 82270; 82533; 82550; 82607; 82728; 82803; 82948; 83605; 83690; 83735; 83874; 83880; 84100; 84145; 84443; 84484; 85025; 85027; 85378; 86140; 86850; 86900; 86901; 87040; 87088; 87635; 87804; 87880; 93005; 93970; 97039; C9803; G0378; J0696; J1650; J1956; J2405; J3490; J7120

== ENCOUNTER 2022-01-11 10:26 | Inpatient (IN) | payer OTHER, MEDICARE ==
[~2022-01-11] VITALS: Ht 152.4 cm; Wt 55.2 kg
[~2022-01-11 10:26] MED LIST changes: +CARV3.12 PO; +DRISDOL PO; +FERR324T4 PO; +HYDR-4060 PO; -LOSA100T58 PO; +MAGN400T53 PO; +MEMA5TAB42 PO; -NEBI10TA PO; +QUET100T34 PO; +TRAZ-185 PO
[2022-01-11 11:00] LABS: BASOPHILS % (AUTO) 0.3 % (0.0-5.0); EOSINOPHILS % (AUTO) 1.1 % (0.0-8.0); HEMATOCRIT 42.2 % (36-48); MEAN CORPUSCULAR HEMOGLOBIN 27.9 pg (27.0-33.0); MEAN CORPUSCULAR HGB CONC 30.3 g/dL (32.0-36.0); MEAN CORPUSCULAR VOLUME 91.9 fL (79-99); MONOCYTES % (AUTO) 4.3 % (3.0-13.0); NEUTROPHILS % (AUTO) 74.7 % (40.0-77.0); PLATELET COUNT (AUTO) 259 K/uL (130-400); RED BLOOD CELL COUNT(AUTO) 4.59 MIL/uL (4.00-5.50); RED CELL DISTRIBUTION WIDTH 14.9 % (11.0-15.5); WHITE BLOOD COUNT (AUTO) 6.3 K/uL (4.8-10.8)
[2022-01-11 11:08] LABS: POTASSIUM 3.9 mmol/L (3.5-5.1)
[2022-01-11 11:16] LABS: ALBUMIN 2.5 g/dL (3.5-5.0); BILIRUBIN,TOTAL 0.3 mg/dL (0.2-1.0); TOTAL PROTEIN, SERUM 6.2 g/dL (6.0-8.3)
[2022-01-11] MEDS ORDERED: FAMOTIDINE 20MG VIAL IV ONE (13:30)
[2022-01-11] MEDS ORDERED: 0.9% NACL 500ML IV.SOLN 500 ML IV ONE (13:30)
[2022-01-11] MEDS ORDERED: ONDANSETRON 4MG INJ IVP ONE (13:30)
[2022-01-11] MEDS ORDERED: DEXTROSE 50%-WATER 50 ML DISP.SYRIN IV ONE (13:41)
[2022-01-11] MEDS ORDERED: DEXTROSE 50%-WATER 50 ML DISP.SYRIN IV SCH (14:00)
[2022-01-11 14:20] LABS: APPEARANCE,URINE SL CLOUDY (CLEAR); BILIRUBIN,URINE SMALL (NEGATIVE); COLOR,URINE YELLOW (YELLOW); GLUCOSE, URINE (UA) NEGATIVE (NEGATIVE); KETONES,URINE 40 mg/dL (NEGATIVE); LEUKOCYTE ESTERASE ,URINE NEGATIVE (NEGATIVE); NITRATE,URINE NEGATIVE (NEGATIVE); OCCULT BLOOD,URINE NEGATIVE (NEGATIVE); PROTEIN,URINE NEGATIVE (NEGATIVE); UROBILINOGEN,URINE 0.2 mg/dL (0.2-1.0)
[2022-01-11 14:30] LABS: BACTERIA,URINE Few /HPF (None Seen); RBC,URINE 0-1 /HPF (0-1); SQUAMOUS EPITHELIAL CELL,UR Few /HPF (0-2)
[2022-01-11 14:31] LABS: MUCUS,URINE Few LPF (None Seen)
[2022-01-11] MEDS ORDERED: CEFTRIAXONE 1G VIAL IV ONE (15:30)
[2022-01-11] MEDS ORDERED: ALBUTEROL 0.083% 2.5 MG/3 ML INH IH PRN (17:30)
[2022-01-11] MEDS ORDERED: LACTULOSE 20 GM/30 ML UDCUP PO PRN (17:30)
[2022-01-11] MEDS ORDERED: ONDANSETRON 4MG INJ IVP PRN (17:30)
[2022-01-11] MEDS ORDERED: HYDRALAZINE 20MG/ML VIAL IV PRN (17:30)
[2022-01-11] MEDS ORDERED: LABETALOL 20MG SYG IV PRN (17:30)
[2022-01-11] MEDS: DEXTROSE 5%-LACTATED RINGERS 1,000 ML IV SCH (17:58)
[2022-01-11] MEDS ORDERED: DONE5TAB33 PO (19:02)
[2022-01-11] MEDS ORDERED: QUET100T34 PO (19:02)
[2022-01-11] MEDS ORDERED: DOCU100T PO (19:02)
[2022-01-11] MEDS ORDERED: DEXA1TAB PO (19:02)
[2022-01-11] MEDS ORDERED: MEMA5TAB42 PO (19:02)
[2022-01-11] MEDS: INSULIN HUMULIN R 100 UNIT/ML 3ML SQ SCH (21:00)
[2022-01-11 21:40] VITALS: BP 124/82
[2022-01-12 00:06] VITALS: BP 110/72
[2022-01-12 03:16] VITALS: BP 120/77
[2022-01-12] MEDS ORDERED: SOLU-MEDROL 125MG VIAL IVP ONE (05:00)
[2022-01-12] MEDS ORDERED: DOCUSATE SODIUM 100 MG CAP PO PRN (05:00)
[2022-01-12] MEDS ORDERED: LEVOFLOXACIN 500 MG/D5W 100 ML 100 ML IV SCH (05:00)
[2022-01-12] MEDS ORDERED: IPRATROPIUM/ALBUTEROL SULFATE 3 ML SOLUTION IH PRN (05:00)
[2022-01-12] MEDS ORDERED: RENAL DOSE IV PRN (05:00)
[2022-01-12 05:55] LABS: BASOPHILS % (AUTO) 0.5 % (0.0-5.0); EOSINOPHILS % (AUTO) 0.8 % (0.0-8.0); HEMATOCRIT 37.3 % (36-48); LYMPHOCYTES % (AUTO) 25.5 % (21.0-51.0); MEAN CORPUSCULAR HEMOGLOBIN 28.6 pg (27.0-33.0); MEAN CORPUSCULAR HGB CONC 31.1 g/dL (32.0-36.0); MEAN CORPUSCULAR VOLUME 91.9 fL (79-99); NEUTROPHILS % (AUTO) 67.6 % (40.0-77.0); PLATELET COUNT (AUTO) 286 K/uL (130-400); RED BLOOD CELL COUNT(AUTO) 4.06 MIL/uL (4.00-5.50); WHITE BLOOD COUNT (AUTO) 6.6 K/uL (4.8-10.8)
[2022-01-12 06:42] LABS: CREATININE 0.9 mg/dL (0.5-1.5); MAGNESIUM 1.5 mg/dL (1.80-2.40); PHOSPHORUS 2.3 mg/dL (2.5-4.9); POTASSIUM 3.6 mmol/L (3.5-5.1); THYROID STIMULATING HORMONE 1.56 uIU/mL (0.36-3.74)
[2022-01-12] MEDS: DEXTROSE 5%-LACTATED RINGERS 1,000 ML IV SCH ×2 (06:50→20:10)
[2022-01-12] MEDS: INSULIN HUMULIN R 100 UNIT/ML 3ML SQ SCH ×4 (07:17→16:30)
[2022-01-12 08:00] VITALS: BP 150/78
[2022-01-12] MEDS ORDERED: PANTOPRAZOLE 40 MG TAB DR PO SCH (09:00)
[2022-01-12] MEDS ORDERED: MAGNESIUM 2GM PREMIX 50ML 50 ML IV SCH (09:30)
[2022-01-12] MEDS ORDERED: SOD PHOSPHATE 45 MMOL/15 ML VI 15 MMOL in 0.9% NACL 250ML 250 ML IV PRN (09:30)
[2022-01-12] MEDS: ASPIRIN 81 MG EC TAB PO SCH (10:54)
[2022-01-12] MEDS: FERROUS SULFATE 325 MG TABLET.DR PO SCH ×2 (10:55→20:19)
[2022-01-12] MEDS: PANTOPRAZOLE 40 MG TAB DR PO SCH (10:55)
[2022-01-12] MEDS: OXYBUTYNIN 5 MG TAB.SR.24H PO SCH (10:55)
[2022-01-12] MEDS: FOLIC ACID 1 MG TABLET PO SCH (10:55)
[2022-01-12] MEDS ORDERED: SOLU-MEDROL 125MG VIAL ONE (11:05)
[2022-01-12] MEDS: MEMANTINE HCL 5 MG TABLET PO SCH (11:13)
[2022-01-12 16:00] VITALS: BP 121/80
[2022-01-12 20:00] VITALS: BP 143/68
[2022-01-12] MEDS: DONEPEZIL HCL 5 MG TAB PO SCH (20:19)
[2022-01-12] MEDS ORDERED: QUETIAPINE FUMARATE 100 MG TAB PO SCH (21:00)
[2022-01-13] VITALS: BP 139/73
[2022-01-13 04:00] VITALS: BP 145/81
[2022-01-13] MEDS: LEVOFLOXACIN 250 MG/D5W 50ML 50 ML IV SCH (05:47)
[2022-01-13] MEDS: INSULIN HUMULIN R 100 UNIT/ML 3ML SQ SCH ×4 (06:47→20:30)
[2022-01-13 08:00] VITALS: BP 154/75
[2022-01-13] MEDS: FOLIC ACID 1 MG TABLET PO SCH (08:21)
[2022-01-13] MEDS: ASPIRIN 81 MG EC TAB PO SCH (08:21)
[2022-01-13] MEDS: PANTOPRAZOLE 40 MG TAB DR PO SCH (08:21)
[2022-01-13] MEDS: OXYBUTYNIN 5 MG TAB.SR.24H PO SCH (08:21)
[2022-01-13] MEDS: FERROUS SULFATE 325 MG TABLET.DR PO SCH ×2 (08:21→19:56)
[2022-01-13] MEDS: MEMANTINE HCL 5 MG TABLET PO SCH (08:24)
[2022-01-13 12:00] VITALS: BP 183/91
[2022-01-13 16:00] VITALS: BP 112/85
[2022-01-13] MEDS: DONEPEZIL HCL 5 MG TAB PO SCH (19:56)
[2022-01-13 20:00] VITALS: BP 146/63
[2022-01-14] VITALS: BP 154/84
[2022-01-14 04:00] VITALS: BP 164/83
[2022-01-14 04:55] LABS: BASOPHILS % (AUTO) 0.1 % (0.0-5.0); EOSINOPHILS % (AUTO) 0.1 % (0.0-8.0); HEMATOCRIT 33.8 % (36-48); LYMPHOCYTES % (AUTO) 20.3 % (21.0-51.0); MEAN CORPUSCULAR HEMOGLOBIN 28.3 pg (27.0-33.0); MEAN CORPUSCULAR HGB CONC 31.4 g/dL (32.0-36.0); MEAN CORPUSCULAR VOLUME 90.1 fL (79-99); MONOCYTES % (AUTO) 5.3 % (3.0-13.0); NEUTROPHILS % (AUTO) 73.4 % (40.0-77.0); PLATELET COUNT (AUTO) 307 K/uL (130-400); RED BLOOD CELL COUNT(AUTO) 3.75 MIL/uL (4.00-5.50); RED CELL DISTRIBUTION WIDTH 15.1 % (11.0-15.5); WHITE BLOOD COUNT (AUTO) 9.9 K/uL (4.8-10.8)
[2022-01-14 05:15] LABS: ALBUMIN 2.2 g/dL (3.5-5.0); BILIRUBIN,TOTAL 0.2 mg/dL (0.2-1.0); CREATININE 0.8 mg/dL (0.5-1.5); POTASSIUM 3.6 mmol/L (3.5-5.1); TOTAL PROTEIN, SERUM 5.3 g/dL (6.0-8.3)
[2022-01-14] MEDS: LEVOFLOXACIN 250 MG/D5W 50ML 50 ML IV SCH (06:09)
[2022-01-14] MEDS: INSULIN HUMULIN R 100 UNIT/ML 3ML SQ SCH ×4 (06:31→20:53)
[2022-01-14 07:40] VITALS: BP 149/72
[2022-01-14] MEDS: MEMANTINE HCL 5 MG TABLET PO SCH ×2 (09:24→20:34)
[2022-01-14] MEDS: PANTOPRAZOLE 40 MG TAB DR PO SCH (09:24)
[2022-01-14] MEDS: ASPIRIN 81 MG EC TAB PO SCH (09:24)
[2022-01-14] MEDS: FOLIC ACID 1 MG TABLET PO SCH (09:24)
[2022-01-14] MEDS: OXYBUTYNIN 5 MG TAB.SR.24H PO SCH (09:24)
[2022-01-14] MEDS: FERROUS SULFATE 325 MG TABLET.DR PO SCH ×2 (09:25→20:33)
[2022-01-14 11:20] VITALS: BP 155/100
[2022-01-14 15:20] VITALS: BP 141/87
[2022-01-14 20:00] VITALS: BP 141/78
[2022-01-14] MEDS: DONEPEZIL HCL 5 MG TAB PO SCH (20:33)
[2022-01-14] MEDS: MIRTAZAPINE 15 MG TABLET PO SCH (20:33)
[2022-01-14] MEDS ORDERED: DRONABINOL 2.5 MG CAP PO SCH (21:00)
[2022-01-15] VITALS: BP 116/71
[2022-01-15 04:00] VITALS: BP 151/74
[2022-01-15] MEDS: LEVOFLOXACIN 250 MG/D5W 50ML 50 ML IV SCH (05:34)
[2022-01-15] MEDS: INSULIN HUMULIN R 100 UNIT/ML 3ML SQ SCH ×4 (05:40→20:54)
[2022-01-15 07:15] VITALS: BP 98/53
[2022-01-15] MEDS: FLUOXETINE HCL 10 MG CAPSULE PO SCH (08:56)
[2022-01-15] MEDS: MEMANTINE HCL 5 MG TABLET PO SCH ×2 (08:56→19:40)
[2022-01-15] MEDS: PANTOPRAZOLE 40 MG TAB DR PO SCH (08:56)
[2022-01-15] MEDS: FERROUS SULFATE 325 MG TABLET.DR PO SCH ×2 (08:56→19:40)
[2022-01-15] MEDS: ASPIRIN 81 MG EC TAB PO SCH (08:57)
[2022-01-15] MEDS: FOLIC ACID 1 MG TABLET PO SCH (08:57)
[2022-01-15] MEDS: OXYBUTYNIN 5 MG TAB.SR.24H PO SCH (08:57)
[2022-01-15 11:05] VITALS: BP 143/84
[2022-01-15] MEDS: POTASSIUM CHLORIDE 10% ELIXIR 20 MEQ/15 ML UDCUP PO PRN ×2 (13:51→16:56)
[2022-01-15] MEDS ORDERED: LIDOCAINE HCL-MPF 1% 2ML VIAL IV PRN (14:00)
[2022-01-15] MEDS ORDERED: KCL 20 MEQ ERTAB PO PRN (14:00)
[2022-01-15] MEDS ORDERED: POTASSIUM CHLORIDE 20MEQ/100ML 100 ML IV PRN (14:00)
[2022-01-15 15:10] VITALS: BP 139/92
[2022-01-15] MEDS: ACETAMINOPHEN 325 MG TAB PO PRN (18:52)
[2022-01-15] MEDS: MIRTAZAPINE 15 MG TABLET PO SCH (19:40)
[2022-01-15] MEDS: DONEPEZIL HCL 5 MG TAB PO SCH (19:40)
[2022-01-15 20:00] VITALS: BP 141/79
[2022-01-16] VITALS (7 sets, daily range): BP systolic 118–159; BP diastolic 66–90
[2022-01-16] MEDS: LEVOFLOXACIN 250 MG/D5W 50ML 50 ML IV SCH (05:02)
[2022-01-16 05:16] LABS: MAGNESIUM 1.7 mg/dL (1.80-2.40); POTASSIUM 4.4 mmol/L (3.5-5.1)
[2022-01-16] MEDS: INSULIN HUMULIN R 100 UNIT/ML 3ML SQ SCH ×4 (05:46→21:00)
[2022-01-16] MEDS: MEMANTINE HCL 5 MG TABLET PO SCH ×2 (08:19→19:46)
[2022-01-16] MEDS: FLUOXETINE HCL 10 MG CAPSULE PO SCH (08:19)
[2022-01-16] MEDS: PANTOPRAZOLE 40 MG TAB DR PO SCH (08:19)
[2022-01-16] MEDS: OXYBUTYNIN 5 MG TAB.SR.24H PO SCH (08:20)
[2022-01-16] MEDS: FOLIC ACID 1 MG TABLET PO SCH (08:20)
[2022-01-16] MEDS: ASPIRIN 81 MG EC TAB PO SCH (08:20)
[2022-01-16] MEDS: FERROUS SULFATE 325 MG TABLET.DR PO SCH ×2 (08:20→19:47)
[2022-01-16] MEDS: DRONABINOL 2.5 MG CAP PO SCH ×2 (13:11→19:46)
[2022-01-16] MEDS ORDERED: FLUOXETINE HCL 10 MG CAPSULE PO SCH (13:30)
[2022-01-16] MEDS ORDERED: FLUDROCORTISONE ACETATE 0.1 MG TABLET PO SCH (19:00)
[2022-01-16] MEDS: DONEPEZIL HCL 5 MG TAB PO SCH (19:47)
[2022-01-16] MEDS ORDERED: DEXTROSE 5 %-0.45 % NACL 1,000 ML IV SCH (20:00)
[2022-01-16] MEDS: ACETAMINOPHEN 325 MG TAB PO PRN (20:15)
[2022-01-17 03:26] VITALS: BP 136/94
[2022-01-17] MEDS: LEVOFLOXACIN 250 MG/D5W 50ML 50 ML IV SCH (05:01)
[2022-01-17 05:24] LABS: BILIRUBIN,TOTAL 0.2 mg/dL (0.2-1.0); MAGNESIUM 2.4 mg/dL (1.80-2.40); PHOSPHORUS 2.4 mg/dL (2.5-4.9); POTASSIUM 3.7 mmol/L (3.5-5.1); TOTAL PROTEIN, SERUM 4.7 g/dL (6.0-8.3)
[2022-01-17 05:33] LABS: BASOPHILS % (AUTO) 0.6 % (0.0-5.0); EOSINOPHILS % (AUTO) 2.5 % (0.0-8.0); HEMATOCRIT 34.1 % (36-48); LYMPHOCYTES % (AUTO) 26.6 % (21.0-51.0); MEAN CORPUSCULAR HEMOGLOBIN 27.6 pg (27.0-33.0); MEAN CORPUSCULAR HGB CONC 30.2 g/dL (32.0-36.0); MEAN CORPUSCULAR VOLUME 91.4 fL (79-99); MONOCYTES % (AUTO) 8.4 % (3.0-13.0); NEUTROPHILS % (AUTO) 60.7 % (40.0-77.0); PLATELET COUNT (AUTO) 203 K/uL (130-400); RED BLOOD CELL COUNT(AUTO) 3.73 MIL/uL (4.00-5.50); RED CELL DISTRIBUTION WIDTH 15.4 % (11.0-15.5); WHITE BLOOD COUNT (AUTO) 4.9 K/uL (4.8-10.8)
[2022-01-17] MEDS: INSULIN HUMULIN R 100 UNIT/ML 3ML SQ SCH ×4 (05:55→21:00)
[2022-01-17] MEDS: DRONABINOL 2.5 MG CAP PO SCH ×2 (07:49→19:43)
[2022-01-17] MEDS: PANTOPRAZOLE 40 MG TAB DR PO SCH (07:49)
[2022-01-17] MEDS: OXYBUTYNIN 5 MG TAB.SR.24H PO SCH (07:49)
[2022-01-17] MEDS: FLUOXETINE HCL 10 MG CAPSULE PO SCH (07:50)
[2022-01-17] MEDS: ASPIRIN 81 MG EC TAB PO SCH (07:50)
[2022-01-17] MEDS: FOLIC ACID 1 MG TABLET PO SCH (07:50)
[2022-01-17] MEDS: FERROUS SULFATE 325 MG TABLET.DR PO SCH ×2 (07:50→19:43)
[2022-01-17 08:00] VITALS: BP 145/93
[2022-01-17] MEDS: MEMANTINE HCL 5 MG TABLET PO SCH ×2 (08:05→19:43)
[2022-01-17] MEDS ORDERED: FLUDROCORTISONE ACETATE 0.1 MG TABLET PO SCH (09:00)
[2022-01-17 12:00] VITALS: BP 155/99
[2022-01-17 16:00] VITALS: BP 147/98
[2022-01-17] MEDS: DONEPEZIL HCL 5 MG TAB PO SCH (19:43)
[2022-01-17] MEDS: ACETAMINOPHEN 325 MG TAB PO PRN (19:44)
[2022-01-17 20:00] VITALS: BP 144/87
[2022-01-18] VITALS: BP 135/80
[2022-01-18 04:00] VITALS: BP 148/77
[2022-01-18] MEDS: LEVOFLOXACIN 250 MG/D5W 50ML 50 ML IV SCH (05:14)
[2022-01-18] MEDS: INSULIN HUMULIN R 100 UNIT/ML 3ML SQ SCH ×3 (05:45→16:30)
[2022-01-18 08:00] VITALS: BP 134/78
[2022-01-18] MEDS: PANTOPRAZOLE 40 MG TAB DR PO SCH (09:52)
[2022-01-18] MEDS: OXYBUTYNIN 5 MG TAB.SR.24H PO SCH (09:52)
[2022-01-18] MEDS: MEMANTINE HCL 5 MG TABLET PO SCH (09:52)
[2022-01-18] MEDS: FOLIC ACID 1 MG TABLET PO SCH (09:52)
[2022-01-18] MEDS: FLUOXETINE HCL 10 MG CAPSULE PO SCH (09:53)
[2022-01-18] MEDS: FERROUS SULFATE 325 MG TABLET.DR PO SCH (09:53)
[2022-01-18] MEDS: ASPIRIN 81 MG EC TAB PO SCH (09:53)
[2022-01-18 12:00] VITALS: BP 142/80
[2022-01-18] MEDS: DRONABINOL 2.5 MG CAP PO SCH (12:23)
[2022-01-18 16:00] VITALS: BP 141/82
[2022-01-18] MEDS: ACETAMINOPHEN 325 MG TAB PO PRN (18:12)
== END 2022-01-18 19:35 | DRG 193 ==
LOC: EDH 10:47 → OBSVTOIN 17:16 → EDHIP 17:16 → 3DH 20:50
PROVIDERS: ADMIT Internal Medicine Critical Care Medicine; ATTEND Internal Medicine Critical Care Medicine
DX: J18.9 Pneumonia, unspecified organism (principal); G92.8 Other toxic encephalopathy; N39.0 Urinary tract infection, site not specified; J98.11 Atelectasis; E16.2 Hypoglycemia, unspecified; D63.8 Anemia in other chronic diseases classified elsewhere; F03.90 Unspecified dementia, unspecified severity, without behavioral disturbance, psychotic disturbance, mood disturbance, and anxiety; I10 Essential (primary) hypertension; N28.9 Disorder of kidney and ureter, unspecified; R62.7 Adult failure to thrive; Z68.23 Body mass index [BMI] 23.0-23.9, adult; F32.A Depression, unspecified; Z96.653 Presence of artificial knee joint, bilateral; Z20.822 Contact with and (suspected) exposure to COVID-19; Z88.0 Allergy status to penicillin; Z90.710 Acquired absence of both cervix and uterus; Z98.41 Cataract extraction status, right eye; Z98.42 Cataract extraction status, left eye; Z51.5 Encounter for palliative care; Z79.82 Long term (current) use of aspirin; Z79.899 Other long term (current) drug therapy
CPT/HCPCS: 36415; 70450; 71045; 80048; 80053; 81001; 82533; 82607; 82746; 82948; 83735; 84100; 84132; 84134; 84145; 84443; 84484; 85025; 87635; 87804; 87880; 93005; 97039; C9803; G0378; J0696; J1956; J2405; J2930; J3475; J3490; J7040; J7042; J7070; Q0167